=== PATIENT | male | born 1950 | race Caucasian/White ===

== ENCOUNTER 2021-07-25 07:34 | Emergency (ER) | payer OTHER, MEDICARE ==
[~2021-07-25] VITALS: Ht 180.3 cm; Wt 71.8 kg
[2021-07-25] MEDS ORDERED: KETOROLAC 60 MG/2 ML VIAL. IM ONE (08:30)
[2021-07-25] MEDS ORDERED: methylPREDNISolone SOD SUCC PF 125 MG/2 ML VIAL. IM ONE (08:30)
--- NOTE | 2021-07-25 08:31 | PHYS DOC ---
Past Medical History Past Medical History: Arthritis, Diabetes-Type II, Hypertension Past Surgical History: No Surgical History Smoking Status: Never Smoker Alcohol Use: None General Adult EDM: Chief Complaint: right hip pain/right foot pain HPI: HPI: Patient is a 70 year old male who present to ER for evaluation of a wound on hi s right foot that he been dealing with for the last 12 months. Patient said he has been walking on it and for the last 3 to 4 days the pain has become more severe, causing him right hip pain as well. Patient denies any injury. Patient denies any abdominal pain, no nausea vomiting. Patient said he was in so much pain in his right hip last night that he could not sleep. The pain is worse whenever he walks or move hist right hip. Patient has history of hypertension, arthritis, diabetic, but he had not seen a doctor for a long time and he is not on any medication. Patient said he was fully vaccinated for COVID-19 Review of Systems: Review of Systems: Constitutional: Denies fever or chills. [] Eyes: Denies change in visual acuity. [] HENT: Denies nasal congestion or sore throat. [] Respiratory: Denies cough or shortness of breath. [] Cardiovascular: Denies chest pain or edema. [] GI: Denies abdominal pain, nausea, vomiting, bloody stools or diarrhea. [] : Denies dysuria. [] Musculoskeletal: Positive for right hip pain Integument: Positive for wound on the bottom of right foot. Neurologic: Denies headache, focal weakness or sensory changes. [] Endocrine: Denies polyuria or polydipsia. [] Lymphatic: Denies swollen glands. [] Psychiatric: Denies depression or anxiety. [] Heart Score: C/O Chest Pain: N/A Risk Factors: Risk Factors: DM, Current or recent (<one month) smoker, HTN, HLP, family history of CAD, obesity. Risk Scores: Score 0 - 3: 2.5% MACE over next 6 weeks - Discharge Home Score 4 - 6: 20.3% MACE over next 6 weeks - Admit for Clinical Observation Score 7 - 10: 72.7% MACE over next 6 weeks - Early Invasive Strategies Current Medications: Current Medications Medications (Trade) Dose Ordered Sig/Shahid Start Time Stop Time Status Last Admin Dose Admin Ketorolac Tromethamine (Toradol Im) 60 mg 1X ONCE 07/25/21 08:30 07/25/21 08:31 UNV Methylprednisolone Sodium Succinate (SOLU-Medrol 125MG VIAL) 125 mg 1X ONCE 07/25/21 08:30 07/25/21 08:31 UNV Allergies: Allergies: Allergies Coded Allergies Type Severity Reaction Last Updated Verified No Known Drug Allergies 07/25/21 No Physical Exam: PE: Constitutional: Well developed, well nourished, no acute distress, non-toxic appearance. [] HENT: Normocephalic, atraumatic, bilateral external ears normal, oropharynx moist, no oral exudates, nose normal. [] Eyes: PERRLA, EOMI, conjunctiva normal, no discharge. [] Neck: Normal range of motion, no tenderness, supple, no stridor. [] Cardiovascular:Heart rate regular rhythm, no murmur [] Lungs & Thorax: Bilateral breath sounds clear to auscultation [] Abdomen: Bowel sounds normal, soft, no tenderness, no masses, no pulsatile masses. [] Skin: Warm, dry, no erythema, no rash. [] Back: No tenderness, no CVA tenderness. [] Extremities: right hip is tender to palpation, no deformity noted. There is a large THICKEN callus formation on the sole of right foot at the 5th distal metatarsal bone, NO OPEN WOUND. DEFORMED TOES NAILS. Neurologic: Alert and oriented X 3, normal motor function, normal sensory function, no focal deficits noted. [] Psychologic: Affect normal, judgement normal, mood normal. [] Current Patient Data: Vital Signs: Vital Signs Date Time Temp Pulse Resp B/P (MAP) Pulse Ox O2 Delivery O2 Flow Rate FiO2 07/25/21 07:48 97.8 110 18 211/118 (149) 98 Room Air 97.8 EKG: EKG: [] Radiology/Procedures: Radiology/Procedures: [][facility] [address] [place] [address] IMAGING REPORT Signed PATIENT: JIA LIN ACCOUNT: [id number] : 1950 LOCATION: ER AGE: 70 SEX: M EXAM STATUS: REG ER ORD. PHYSICIAN: MICHAELLE TAN DO REASON: right hip pain PROCEDURE: HIP RIGHT 2V WITH PELVIS Pelvis and right hip: Reason for examination: Right hip pain and right foot pain. No acute bony abnormality seen in the pelvis. The bone density is normal. No gross abnormality seen sacrum or sacroiliac joints. Proximal femur bilaterally appear to be intact and hip joints are maintained. 2 views of the right hip show no acute fracture or dislocation. The bone density is normal. No abnormal periosteal reaction is seen. IMPRESSION: No acute bony abnormality seen in the pelvis or right hip. Right foot 3 views: There appears to be fusion of the interphalangeal joint of the great toe and of the proximal interphalangeal joints of the second, third and fifth toes. There is also fusion of the metatarsophalangeal joints of the third and fourth toes. No acute site of fracture or dislocation is seen. No abnormal periosteal reaction is seen. IMPRESSION: No acute fracture or dislocation evident. Electronically signed by: Rosey Priest MD (07/25/2021 8:51 AM) [id number] DICTATED and SIGNED BY: ROSEY PRIEST MD DATE: 07/25/21 [id number] 0 [facility] [address] [place], [place] [id number] IMAGING REPORT Signed PATIENT: JIA LIN ACCOUNT: [id number] : 1950 LOCATION: ER AGE: 70 SEX: M EXAM STATUS: REG ER ORD. PHYSICIAN: MICHAELLE TAN DO REASON: right foot pain PROCEDURE: FOOT RIGHT 3V Pelvis and right hip: Reason for examination: Right hip pain and right foot pain. No acute bony abnormality seen in the pelvis. The bone density is normal. No gross abnormality seen sacrum or sacroiliac joints. Proximal femur bilaterally appear to be intact and hip joints are maintained. 2 views of the right hip show no acute fracture or dislocation. The bone density is normal. No abnormal periosteal reaction is seen. IMPRESSION: No acute bony abnormality seen in the pelvis or right hip. Right foot 3 views: There appears to be fusion of the interphalangeal joint of the great toe and of the proximal interphalangeal joints of the second, third and fifth toes. There is also fusion of the metatarsophalangeal joints of the third and fourth toes. No acute site of fracture or dislocation is seen. No abnormal periosteal reaction is seen. IMPRESSION: No acute fracture or dislocation evident. Electronically signed by: Rosey Priest MD (07/25/2021 8:51 AM) [id number] DICTATED and SIGNED BY: ROSEY PRIEST MD DATE: 07/25/21 [id number] 0 Course & Med Decision Making: Course & Med Decision Making Pertinent Labs and Imaging studies reviewed. (See chart for details) Patient is a 70-year-old male who present to ER due to right hip pain, and left foot pain. Patient had a callus formation on his right foot for the last year. X-ray of the right hip and right foot did not show any acute problem. 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 Patient will be given pain medication and anti-inflammatory medication for the pain on the right hip which is due to arthritis. Patient was given a phone number of the local primary care physician group to call for follow-up next week about it blood pressure ,diabetic problem, and arthritis of the right hip Dragon Disclaimer: Dragsis Disclaimer: This electronic medical record was generated, in whole or in part, using a voice recognition dictation system. Departure Departure Impression: Primary Impression: Right hip pain Additional Impression: Callus of foot Disposition: 01 HOME / SELF CARE / HOMELESS Condition: STABLE Referrals: BRADEN AGRAWAL DPZenia Please call this SUSTAINABILITY COMMUNICATOR next week for evaluation of your foot problem. Patient Instructions: Corns and Calluses-SportsMed, Hip Pain Additional Instructions: Please follow up with [facility] this week. [address], [address] [place] [address] Phone number: [phone] Scripts Tramadol Hcl (TRAMADOL HCL) 50 Mg Tablet 50 MG PO Q4HRS PRN for PAIN, #20 TAB Prov: MICHAELLE TAN DO 07/25/21 Ibuprofen (IBUPROFEN) 600 Mg Tablet 600 MG PO PRN Q6HRS PRN for INFLAMMATION, #30 TAB Prov: MICHAELLE TAN DO 07/25/21 MICHAELLE TAN DO Jul 25, 2021 08:31
--- NOTE | 2021-07-25 08:54 | RAD ---
Pelvis and right hip: Reason for examination: Right hip pain and right foot pain. No acute bony abnormality seen in the pelvis. The bone density is normal. No gross abnormality seen s acrum or sacroiliac joints. Proximal femur bilaterally appear to be intact and hip joints are maintai cristy. 2 views of the right hip show no acute fracture or dislocation. The bone density is normal. No abnorm al periosteal reaction is seen. IMPRESSION: No acute bony abnormality seen in the pelvis or right hip. Right foot 3 views: There appears to be fusion of the interphalangeal joint of the great toe and of the proximal interpha langeal joints of the second, third and fifth toes. There is also fusion of the metatarsophalangeal j oints of the third and fourth toes. No acute site of fracture or dislocation is seen. No abnormal per iosteal reaction is seen. IMPRESSION: No acute fracture or dislocation evident. Electronically signed by: Rosey Yanez MD (07/25/2021 8:51 AM) [id number]
[2021-07-25] MEDS ORDERED: IBUP-1007 PO (09:19)
[2021-07-25] MEDS ORDERED: TRAM50TA PO (09:19)
[2021-07-25 09:42] VITALS: BP 131/70
== END 2021-07-25 10:00 | disposition home or self-care (01) ==
LOC: ER 07:34
DX: M25.551 Pain in right hip (principal); L84 Corns and callosities; E11.9 Type 2 diabetes mellitus without complications; I10 Essential (primary) hypertension
CPT/HCPCS: 73502; 73630; 96372; 99284; J1885; J2930